=== PATIENT | male | born 1990 | race African-American/Black ===

== ENCOUNTER 2016-09-22 12:31 | Emergency (ER) | payer OTHER ==
[~2016-09-22] VITALS: Ht 190.5 cm; Wt 128.1 kg
[2016-09-22 13:11] LABS: HEMATOCRIT 45.2 % (38.0-50.0); MCH 24.7 PG (29.0-34.0); MCHC 33.4 G/DL (30.0-36.0); MEAN PLAT.VOLUME 9.6 uM^3 (9.0-12.4); PLATELET COUNT 222 K/uL (156-360); RBC DIS.WIDTH-SD 40.4 % (39-53); RED BLOOD COUNT 6.11 M/uL (4.00-5.50); WHITE BLOOD COUNT 7.2 K/uL (4.1-10.2)
[2016-09-22 13:22] LABS: CHLORIDE 106 mEq/L (99-109); POTASSIUM 4.2 mEq/L (3.7-5.4); SODIUM 138 mEq/L (136-147)
[2016-09-22 13:24] LABS: GLUCOSE 109 mg/dL (70-99)
[2016-09-22 13:25] LABS: ANION GAP 8 MEQ/L (2-14)
[2016-09-22 13:26] LABS: TOTAL BILIRUBIN 0.7 mg/dL (0.0-1.0)
[2016-09-22 13:27] LABS: ALKALINE PHOSPHATASE 63 IU/L (3-129)
[2016-09-22 13:29] LABS: UREA NITROGEN (BUN) 16 mg/dL (9-23)
[2016-09-22 13:32] LABS: GFR ESTIMATE (CALCULATED) > 59 mL/min/
[2016-09-22] MEDS ORDERED: ZOFRAN4 MG PO (15:42)
[2016-09-22] MEDS ORDERED: BENTYL20 MG PO (15:42)
[2016-09-22 16:05] VITALS: BP 122/80
== END 2016-09-22 16:06 | disposition home or self-care (01) ==
LOC: EME 12:31
DX: R10.9 Unspecified abdominal pain (principal); R11.2 Nausea with vomiting, unspecified
CPT/HCPCS: 80053; 81003; 85027; 99281; 99284; J0500; J1885; J2405; J7030

== ENCOUNTER 2017-07-13 10:39 | Emergency (ER) | payer OTHER ==
[~2017-07-13] VITALS: Ht 190.5 cm; Wt 128.7 kg
[~2017-07-13 10:39] MED LIST: BENTYL20 MG PO; ZOFRAN4 MG PO
[2017-07-13] MEDS ORDERED: ZYRTEC10 M3 PO (11:49)
[2017-07-13] MEDS ORDERED: ADVAIR 250/501 DISK IH (11:49)
[2017-07-13] MEDS ORDERED: TESSALON200 MG PO (12:43)
[2017-07-13] MEDS ORDERED: PREDNISONE20 MG PO (12:43)
[2017-07-13 12:56] VITALS: BP 147/90
== END 2017-07-13 12:57 | disposition home or self-care (01) ==
LOC: EME 10:39
PROVIDERS: Nurse Practitioner Family
DX: J45.909 Unspecified asthma, uncomplicated (principal)
CPT/HCPCS: 71020; 87502; 94640; 99281; 99284; J7512